=== PATIENT | male | born 1980 | race Two or more races ===

== ENCOUNTER → 2024-05-28 | Outpatient (CLI) | payer BC, SELFPAY ==
[2024-05-28 09:21] LABS: Basophils # (Auto) 0.1 Thou/mm3 (0.0-0.2); Basophils % (Auto) 1 % (0-2.5); Eosinophils # (Auto) 0.2 Thou/mm3 (0.0-0.5); Eosinophils % (Auto) 2 % (0-10); Hematocrit 45.2 % (41.0-53.0); Hemoglobin 15.9 g/dL (13.5-16.0); Immature Granulocytes % (Auto) 0 % (0-0); Immature Granulocytes Auto 0.02 Thou/mm3 (0.00-0.00); Lymphocytes # (Auto) 1.5 Thou/mm3 (1.0-4.8); Lymphocytes % (Auto) 21 % (10-50); Mean Corpuscular HGB Conc 35.2 g/dl (31.0-37.0); Mean Corpuscular Hemoglobin 31.2 pg (25.0-35.0); Mean Corpuscular Volume 89 fL (80-100); Monocytes # (Auto) 0.5 Thou/mm3 (0.0-0.8); Monocytes % (Auto) 8 % (0-12); Neutrophils # (Auto) 4.9 Thou/mm3 (1.8-7.7); Neutrophils % (Auto) 69 % (37-80); Nucleated Red Blood Cell % 0 /100 WBC (0); Platelet Count 277 Thou/mm3 (140-440); RDW Standard Deviation 40.7 fL (35.1-43.9); White Blood Count 7.1 Thou/mm3 (3.8-10.6)
[2024-05-28 09:34] LABS: Alanine Aminotransferase 35 U/L (10-49); Albumin, Serum 4.9 gm/dL (3.5-5.0); Alkaline Phosphatase 69 U/L (46-116); Anion Gap 8 (7-16); Aspartate Amino Transferase 23 U/L (0-34); BUN/Creatinine Ratio 16 Ratio (12-20); Bilirubin,Total 0.6 mg/dL (0.3-1.2); Blood Urea Nitrogen 16 mg/dL (9-23); Calcium 10.3 mg/dL (8.3-10.6); Calcium (Corrected) 10.3 mg/dL (8.5-10.1); Carbon Dioxide 30.3 mMol/L (20.0-31.0); Cardiac Risk Estimate 3.6 RATIO (4.0-6.7); Chloride 101 mMol/L (98-107); Cholesterol 230 mg/dL (132-200); Globulin 2.4 gm/dL (2.3-3.5); Glucose 96 mg/dL (74-106); HDL Cholesterol 64 mg/dL (40-60); LDL Cholesterol,Calculated 143 mg/dL (0-130); Osmolality,Calculated 278 (275-295); Potassium 4.8 mMol/L (3.4-5.1); Sodium 139 mMol/L (136-145); Thyroid Stimulating Hormone 1.04 uIU/mL (0.55-4.78); Total Protein 7.3 gm/dL (5.7-8.2); Triglycerides 115 mg/dL (30-150); eGFR > 60 See Note
[2024-05-28 09:34] LABS: Collection Type, Urine Clean Catch; Squamous Epithelial Cell,Urine 0 /hpf (0-5)
[2024-05-28 10:29] LABS: Bilirubin,Urine Negative (Negative); Blood,Urine Negative (Negative); Clarity,Urine Clear (Clear/Hazy); Color,Urine Colorless (Lt Yel-Yel); Culture Indicated,Urine Not Indicated; Glucose, Urine Negative (Negative); Ketones,Urine Negative (Negative); Leukocyte Esterase,Urine Negative (Negative); Nitrite,Urine Negative (Negative); Protein,Urine Negative (Neg - Trace); RBC,Urine < 1 /hpf (0-3); Specific Gravity,Urine 1.006 (1.001-1.035); Urobilinogen,Urine Negative mg/dL (0.0-1.0); WBC,Urine < 1 /hpf (0-5)
[2024-06-02 06:25] LABS: Testosterone, Free,Dialysis 77.1 pg/mL (35.0-155.0); Testosterone, Total, Dialysis 515 ng/dL (250-1100)
== END | disposition home or self-care (01) ==
PROVIDERS: PCP Physician Assistant; Referring Provider Physician Assistant; Visit Provider Physician Assistant
DX: Z00.00 Encounter for general adult medical examination without abnormal findings (principal); E55.9 Vitamin D deficiency, unspecified; I10 Essential (primary) hypertension; E78.5 Hyperlipidemia, unspecified
CPT/HCPCS: 36415; 80053; 80061; 81001; 82306; 84402; 84403; 84443; 85025

== ENCOUNTER 2024-11-10 13:22 | Emergency (ER) | payer BC, SELFPAY ==
[2024-11-10 13:26] VITALS: BMI 31.7
[2024-11-10 13:29] VITALS: BP 158/109; BP 161/117; PULSE 80; RESP 18; TEMP 37.1; O2SAT 97
--- NOTE | 2024-11-10 13:37 | XR_ITS ---
Examination: CT abdomen and pelvis without contrast. Coronal 3-D reconstructions. Sagittal 2-D reconstructions. Date and time of exam:November 10, 2024 1355 hours INDICATIONS: Generalized abdominal pain and constipation bloody stools beginning 4 days ago CTDI: vol (mGy): 10.9 DLP: (mGycm): 665 Technique: Axial images of the abdomen have been obtained, 3 mm slice thickness Intravenous contrast material has not been administered. Low dose protocols were performed. One or more of the following dose reduction techniques were used; automated exposure control, adjustment of the mA and/or KV according to patient size, use of iterative reconstruction technique. Findings: No focal liver or splenic lesions No gallstones No pancreatic or adrenal mass No renal or ureteral calculi, no hydronephrosis Aorta normal size No bowel obstruction Normal appendix Colonic diverticulosis, no diverticulitis Intact urinary bladder IMPRESSION: Normal appendix Colonic diverticulosis, no diverticulitis No nonspecific colitis or enteritis pattern on this noncontrast study
--- NOTE | 2024-11-10 13:37 | XR_ITS ---
Examination: Abdomen sonogram, Limited Date and time of exam: November 10, 2024 1357 hours INDICATIONS: Epigastric pain right upper abdominal pain beginning 3 days ago Technique: Real-time loomis scale transabdominal sonographic images of the upper abdomen obtained. Findings: Normal gallbladder Normal common bile duct 0.3 cm Pancreatic head 2.9 cm Liver 13.8 cm fatty infiltration no focal liver lesions Normal hepatopedal portal venous flow Patent IVC IMPRESSION: Normal gallbladder Fatty infiltration throughout the liver
[2024-11-10] MEDS: ONDANSETRON ODT 4 MG TABRAP PO (13:47)
[2024-11-10 14:00] LABS: Basophils # (Auto) 0.1 Thou/mm3 (0.0-0.2); Basophils % (Auto) 1 % (0-2.5); Eosinophils # (Auto) 0.1 Thou/mm3 (0.0-0.5); Eosinophils % (Auto) 1 % (0-10); Hematocrit 45.4 % (41.0-53.0); Hemoglobin 15.8 g/dL (13.5-16.0); Immature Granulocytes Auto 0.02 Thou/mm3 (0.00-0.00); Lymphocytes # (Auto) 1.6 Thou/mm3 (1.0-4.8); Lymphocytes % (Auto) 18 % (10-50); Mean Corpuscular HGB Conc 34.8 g/dl (31.0-37.0); Mean Corpuscular Hemoglobin 31.2 pg (25.0-35.0); Mean Corpuscular Volume 90 fL (80-100); Monocytes # (Auto) 0.9 Thou/mm3 (0.0-0.8); Monocytes % (Auto) 10 % (0-12); Neutrophils # (Auto) 6.3 Thou/mm3 (1.8-7.7); Neutrophils % (Auto) 70 % (37-80); Nucleated Red Blood Cell # 0.00 Thou/mm3 (0.00-0.00); Nucleated Red Blood Cell % 0 /100 WBC (0); Platelet Count 256 Thou/mm3 (140-440); RDW Standard Deviation 41.4 fL (35.1-43.9); Red Blood Count 5.07 Miln/mm3 (4.50-5.90); White Blood Count 9.1 Thou/mm3 (3.8-10.6)
[2024-11-10] MEDS: HYDROcodone/APAP 5/325 TABLET 1 TAB PO (14:22)
[2024-11-10] MEDS: MG HYD/AL HYD/SIME (Maalox Reg) SUSP 30 ML UDC PO (14:23)
[2024-11-10 14:24] LABS: Alanine Aminotransferase 32 U/L (10-49); Albumin, Serum 4.9 gm/dL (3.5-5.0); Albumin/Globulin Ratio 1.8 (1.2-2.2); Alkaline Phosphatase 84 U/L (46-116); Anion Gap 7 (7-16); Aspartate Amino Transferase 28 U/L (0-34); BUN/Creatinine Ratio 15 Ratio (12-20); Bilirubin,Total 0.7 mg/dL (0.3-1.2); Blood Urea Nitrogen 15 mg/dL (9-23); Calcium 9.6 mg/dL (8.3-10.6); Calcium (Corrected) 9.6 mg/dL (8.5-10.1); Carbon Dioxide 27.7 mMol/L (20.0-31.0); Chloride 100 mMol/L (98-107); Creatinine (Component) 1.0 mg/dL (0.6-1.3); Estimated Creatinine Clearance 107.4 mL/min (>60); Globulin 2.7 gm/dL (2.3-3.5); Glucose 103 mg/dL (74-106); Lipase 30 U/L (12-53); Osmolality,Calculated 270 (275-295); Potassium 4.1 mMol/L (3.4-5.1); Sodium 135 mMol/L (136-145); Total Protein 7.6 gm/dL (5.7-8.2); eGFR > 60 See Note
--- NOTE | 2024-11-10 14:51 | EDNOTE_ITS ---
<Statement entered by Vernell Brown MD - 11/15/24 17:25> As co-signing physician, I was present and available for consult prn. I concur with the plan and care as documented by the midlevel provider. ED Abdominal Pain RME/HPI General Chief Complaint: Abdominal Pain Stated complaint: ABD PAIN SINCE FRIDAY; FEELS LIKE A BALL OF FIRE Time seen by provider: 11/10/24 13:29 Arrival date/time: 11/10/24 13:22 44-year-old male with no known medical history presents to the emergency room w ith a chief complaint of epigastric and right upper quadrant abdominal pain and tenderness x 2 days Source: patient Mode of arrival: ambulatory Limitations: no limitations Related Data Previous Rx's ?Medication ?Instructions ?Recorded cyclobenzaprine 10 mg tablet 10 mg PO TID PRN muscle s pasm #30 05/02/18 tabs hydrocodone 5 mg-acetaminophen 325 1 tab PO QID PRN pa in #14 tabs 05/02/18 mg tablet ([place]) ibuprofen 800 mg tablet 800 mg PO TID PRN pain #30 t abs 05/02/18 benzonatate 200 mg capsule 200 mg PO TID PRN cough #30 caps 06/19/19 ipratropium bromide 21 mcg (0.03 2 spray intranasal BI D #30 mL 06/19/19 %) nasal spray loratadine 10 mg tablet (Allergy 10 mg PO QDAY allergy symptoms #30 06/19/19 Relief (loratadine)) tabs pseudoephedrine HCl 120 mg 120 mg PO Q12H PRN nasal tablet,extended release (Sudafed congestion #14 tabs 12 Hour) hydrocodone 5 mg-acetaminophen 325 1 - 2 tab PO Q6H TN N pain #14 tabs 05/21/21 mg tablet hydrocodone 5 mg-acetaminophen 325 1 tab PO BID PRN pa in #10 tabs 04/13/23 mg tablet ibuprofen 800 mg tablet 800 mg PO TID PRN pain #30 t abs 04/13/23 omeprazole 40 mg capsule,delayed 40 mg PO QDAY #30 cap s 11/10/24 release Allergies Allergy/AdvReac Type Severity Reaction Status Date / Time Penicillins Allergy Severe Anaphylaxis Verified 11/10/24 13:26 Review of Systems Review of Systems Systems Reviewed: All systems reviewed, normal except as documented Constitutional Constitutional: Reports system reviewed and no additional complaints, except as documented, Denies fatigue, Denies fever(s), Denies headache(s) and Denies weakness Eyes Eyes: Reports system reviewed and no additional complaints, except as documented, Denies blurry vision and Denies change in vision ENT Ears, Nose, Mouth, and Throat: Reports system reviewed and no additional complaints, except as documented, Denies otalgia, Denies headache(s), Denies nasal congestion, Denies throat swelling and Denies vertigo Cardiovascular Cardiovascular: Reports system reviewed and no additional complaints, except as documented, Denies chest pain, Denies dyspnea and Denies dyspnea on exertion Respiratory Respiratory: Reports system reviewed and no additional complaints, except as documented, Denies chest congestion, Denies cough, Denies dyspnea, Denies dyspnea on exertion and Denies wheezing Gastrointestinal Gastrointestinal: Reports system reviewed and no additional complaints, except as documented, Reports abdominal pain, Reports cramping, Reports nausea and Denies vomiting Genitourinary Genitourinary: Reports system reviewed and no additional complaints, except as documented, Denies dysuria and Denies hematuria Musculoskeletal Musculoskeletal: Reports system reviewed and no additional complaints, except as documented and Denies back pain Integumentary/Breasts Skin/Breast: Reports system reviewed and no additional complaints, except as documented and Denies wounds Neurologic Neurologic: Reports system reviewed and no additional complaints, except as docu mented, Denies confusion, Denies headache(s), Denies lack of coordination, Denies vertigo and Denies weakness Psychiatric Psychiatric: Reports system reviewed and no additional complaints, except as documented, Denies anxiety, Denies confusion, Denies depression, Denies paranoia, Denies suicidal ideation and Denies tactile hallucinations Endocrine Endocrine: Reports system reviewed and no additional complaints, except as documented and Denies fatigue Hematologic/Lymphatic Hematologic/Lymphatic: Reports system reviewed and no additional complaints, except as documented and Denies lymphadenopathy Allergic/Immunologic Allergic/Immunologic: Reports system reviewed and no additional complaints, except as documented, Denies throat swelling, Denies urticaria and Denies wheezing Past Medical History Past Medical History CARDIAC: Negative Cardiac Disorders or Congestive Heart Failure RESPIRATORY: Negative Chronic Obstructive Pulmonary Disease (COPD) or Asthma GENITOURINARY: Negative Renal Disease ENDOCRINE: Negative Diabetes Mellitus Type 1 or Diabetes Mellitus Type 2 HEMATOLOGIC: Negative Sickle Cell Disease Social History SMOKING STATUS: Former smoker ED Exam General Limitations: Present no limitations General appearance: Present alert and in no apparent distress Head Head exam: Present atraumatic Eye Eye exam: Present normal appearance, PERRL and EOMI ENT ENT exam: Present normal exam, normal oropharynx and mucous membranes moist Neck Neck exam: Present normal inspection, full ROM and trachea midline Chest Chest inspection: Present normal inspection and symmetric chest wall rise Respiratory Respiratory exam: Present normal lung sounds bilaterally Cardiovascular Cardiovascular exam: Present regular rate, normal rhythm and normal heart sounds Abdominal Exam Abdominal exam: Present soft, tenderness and normal bowel sounds; Absent distention, guarding, rebound, rigidity or Stover's sign Abdominal tenderness: Present RUQ, epigastrium and moderate Extremities Exam Extremities exam: Present normal inspection and full ROM Back Exam Back exam: Present normal inspection and full ROM Neurological Exam Neurological exam: Present alert, oriented X3 and CN II-XII intact Psychiatric Psychiatric exam: Present normal affect and normal mood Skin Skin exam: Present warm, dry, intact and normal color Course Quality Measures none Orders Category Date Time Status CT abdomen pelvis wo con Stat Exams 11/10/24 13:37 Completed US gall bladder Stat Exams 11/10/24 13:37 Completed CBC Stat Lab 11/10/24 13:48 Completed CMP [Comprehensive Metabolic Panel] Stat Lab 11/10/24 13:48 Completed Lipase Stat Lab 11/10/24 13:48 Completed HYDROcodone*/APAP 5/325 [[place] 5/325] Med 11/10/24 13:37 Discontinued 1 tab PO X1 ONE Ondansetron Odt [Zofran Odt] Med 11/10/24 13:37 Discontinued 4 mg PO X1 ONE mg Hyd/Al Hyd/Julia Susp [Maalox Susp] Med 11/10/24 13:37 Discontinued 30 ml PO X1 ONE Vital Signs Vital signs: Vital Signs Temperature 98.7 F 11/10/24 13:29 Pulse Rate 80 11/10/24 13:29 Respiratory Rate 18 11/10/24 13:29 Blood Pressure 161/117 H 11/10/24 13:29 Pulse Oximetry (%) 97 11/10/24 13:29 Oxygen Delivery Method Room Air 11/10/24 13:29 Abdominal Pain MDM MDM Narrative MDM Narrative:: 44-year-old male with no known medical history presents to the emergency room with a chief complaint of epigastric and right upper quadrant abdominal pain and tenderness x 2 days Patient is hemodynamically stable and in no apparent distress. He is afebrile not tachycardic and not tachypneic Physical examination shows tenderness with palpation to the right upper quadrant and epigastric area of the patient's abdomen. Patient has a negative Stover sign and negative tenderness to the right lower quadrant or to McBurney's point Ultrasound of the gallbladder was within normal limits there is no cholelithiasis or cholecystitis there is some fatty infiltration in the liver A CT of the abdomen and pelvis was negative for any acute findings. Patient was discharged and educated to follow-up with primary care provider in the next 24 to 48 hours and return to the emergency room for any evidence of worsening signs or symptoms Patient data External records reviewed:: [facility] previous records Clinical information provided by:: patient Social determinants that could affect healthcare access:: none Patient has the following chronic illnesses:: No chronic illness How is presenting disease/condition affected by chronic disease/condition?: no chronic disease Evaluation data The following diagnostics were reviewed and interpreted by me:: lab results and radiology exam(s) Lab and/or radiology exams considered but not ordered:: Labs and radiology exams considered and ordered Interpretation Summary: Ultrasound gallbladder-Findings: Normal gallbladder Normal common bile duct 0.3 cm Pancreatic head 2.9 cm Liver 13.8 cm fatty infiltration no focal liver lesions Normal hepatopedal portal venous flow Patent IVC IMPRESSION: Normal gallbladder Fatty infiltration throughout the liver CT abdomen and pelvis-Findings: No focal liver or splenic lesions No gallstones No pancreatic or adrenal mass No renal or ureteral calculi, no hydronephrosis Aorta normal size No bowel obstruction Normal appendix Colonic diverticulosis, no diverticulitis Intact urinary bladder IMPRESSION: Normal appendix Colonic diverticulosis, no diverticulitis No nonspecific colitis or enteritis pattern on this noncontrast study Medications / Prescriptions Medications or Prescriptions considered but not ordered:: Medication given Medication administrations:: Medication Administration History Discontinued Medications Hydrocodone Bitart/Acetaminophen (Hydrocodone/Apap 5/325 Tablet) 1 tab PO X1 ONE Stop: 11/10/24 13:38 Last Admin: 11/10/24 14:22 Dose: 1 tab Documented By: Al Hydrox/Mg Hydrox/Simethicone (Mg Hyd/Al Hyd/Julia (Maalox Reg) Susp 30 Ml Udc) 30 ml PO X1 ONE Stop: 11/10/24 13:38 Last Admin: 11/10/24 14:23 Dose: 30 ml Documented By: Ondansetron HCl (Ondansetron Odt 4 Mg Tabrap) 4 mg PO X1 ONE; Protocol Stop: 11/10/24 13:38 Last Admin: 11/10/24 13:47 Dose: 4 mg Documented By: Medication given Consultations Consultation(s) initiated? (list below): No Diagnosis Differential diagnosis abdominal pain: abdominal pain, acute appendicitis, constipation, gastroenteritis, pancreatitis and other (Gastritis) Most likely diagnosis given after review of the tests above:: Gastritis Admission Indicated Admission indicated?: not indicated Admission Request Was there a request for admission?: No Disposition Plan Disposition Plan: Discharge Discharge Attestation Discharge Attestation: The patient and all family members were given an opportunity to ask questions and understood the discharge instructions. Discharge instructions specifically effects, indications for sooner follow up or return to the emergency department, and the expected course of current diagnosis. Patient condition: Stable Discharge Plan Plan Patient Disposition: HOME (Self Care) Discharge Disposition comment: Stable Prescriptions/Referrals Prescriptions/Med Rec: New omeprazole 40 mg capsule,delayed release(DR/EC) 40 mg PO QDAY Qty: 30 0RF No Action pseudoephedrine HCl [Sudafed 12 Hour] 120 mg tablet extended release 120 mg PO Q12H PRN (Reason: nasal congestion) Qty: 14 0RF ipratropium bromide 0.03 % spray,non-aerosol 2 spray INTRANASAL BID Qty: 30 0RF Rx Instructions: administer into each nostril; wait 30 seconds between sprays loratadine [Allergy Relief (loratadine)] 10 mg tablet 10 mg PO QDAY Qty: 30 3RF benzonatate 200 mg capsule 200 mg PO TID PRN (Reason: cough) Qty: 30 0RF hydrocodone-acetaminophen 5-325 mg tablet 1 - 2 tab PO Q6H MDD 6 PRN (Reason: pain) Qty: 14 0RF cyclobenzaprine 10 mg tablet 10 mg PO TID PRN (Reason: muscle spasm) Qty: 30 0RF ibuprofen 800 mg tablet 800 mg PO TID PRN (Reason: pain) Qty: 30 0RF hydrocodone-acetaminophen [[place]] 5-325 mg tablet 1 tab PO QID MDD 3 tabs PRN (Reason: pain) Qty: 14 0RF ibuprofen 800 mg tablet 800 mg PO TID PRN (Reason: pain) Qty: 30 0RF hydrocodone-acetaminophen 5-325 mg tablet 1 tab PO BID MDD 10 PRN (Reason: pain) Qty: 10 0RF Referrals: Yolette Oden PA-C [Primary Care Provider] - In 1 week Problem List Clinical Impression: Gastritis Patient/Caregiver Discharge Instructions Education Materials: Treating Gastritis, Understanding Gastritis, ED Gastritis (Adult) Additional Instructions: Please follow-up with your primary care provider in the next 24 to 48 hours Your ultrasound of your gallbladder was negative for any acute findings. Your CT of your abdomen and pelvis was negative for any acute findings Your blood work was within normal limits For any evidence of worsening signs or symptoms return to the emergency room immediately Print Language: Urdu Stand Alone Forms: [place] Award Info., Patient Portal Info Letter JENN/BASILIO Supervising Physician JENN/BASILIO Supervising Physician: Dr. BROWN
== END 2024-11-10 15:51 | disposition home or self-care (01) ==
PROVIDERS: Emergency Provider Nurse Practitioner Family; PCP Physician Assistant
DX: K29.70 Gastritis, unspecified, without bleeding (principal); K57.30 Diverticulosis of large intestine without perforation or abscess without bleeding; K76.0 Fatty (change of) liver, not elsewhere classified
CPT/HCPCS: 36415; 74176; 76705; 80053; 81001; 83690; 85025; 87086; 99283; Q0162; A9270